=== PATIENT | female | born 1965 | race Caucasian/White ===

== ENCOUNTER 2020-06-11 17:52 | Inpatient (IN) ==
[2020-06-11] MEDS ORDERED: ONDANSETRON INJ 2 MG/ML 2 ML VIAL ONE (18:13)
[2020-06-11 18:23] LABS: Basophils # (auto) 0.08 K/uL (0-0.2); Basophils % (auto) 0.6 %; Eosinophils # (auto) 0.01 K/uL (0-0.5); Eosinophils % (auto) 0.1 %; Hematocrit (blood only) 51.6 % (37-47); Hemoglobin 17.2 g/dL (12.0-16.0); Immature Granulocytes # (auto) 0.13 K/uL (0.00-0.02); Lymphocytes # (auto) 3.01 K/uL (1.2-3.4); Lymphocytes % (auto) 23.3 %; Mean Corpuscular Hemoglobin 29.6 pg (25-34); Mean Corpuscular Hgb Conc 33.3 g/dL (32-36); Mean Corpuscular Volume 88.8 fL (80-100); Mean Platelet Volume 11.5 fL (7.4-10.4); Monocytes # (auto) 0.48 K/uL (0.11-0.59); Monocytes % (auto) 3.7 %; Neutrophils % (auto) 71.3 %; Platelet Count 400 K/uL (130-400); RDW Coefficient of Variation 13.3 % (11.5-14.5); RDW Standard Deviation 42.9 fL (36.4-46.3); Red Blood Count 5.81 M/uL (4.2-5.4); White Blood Count 12.91 K/uL (4.8-10.8)
[2020-06-11] MEDS ORDERED: NovoLIN-R INSULIN PER UNIT CHARGE IV STA (18:29)
[2020-06-11] MEDS ORDERED: SODIUM CHLORIDE 0.9% 1000ML 2,000 ML IV ONE (18:29)
--- NOTE | 2020-06-11 18:35 | Emergency Department Note ---
History of Present Illness General Chief complaint: Illness Stated complaint: ILLNESS Time Seen by Provider: 06/11/20 18:22 Source: patient Mode of arrival: EMS Limitations: no limitations History of Present Illness Provider complaint: Nausea/vomiting This is a 54-year-old female who presents to the ED with a chief complaint of nausea, vomiting and feeling thirsty. She states that she has had the symptoms for 2 or 3 days. The patient is an insulin requiring diabetic. She denies any pain. Denies diarrhea. She has an insulin pump. She states that she has been giving herself some insulin based on the pump but has not really checked her blood sugar at all recently in the past 2 days. She has no additional complaints at this time. Nothing makes her symptoms better. Home Medications Home Medications Medication Instructions Recorded Confirmed Type Lisinopril (Zestril) 5 mg PO QPM #0 10/01/08 History Sertraline (Zoloft) 200 mg PO QPM #0 10/01/08 History INSULIN ASPART (NOVOLOG) 0 SC ACHS #0 btl 11/16/15 History Insulin Glargine (Lantus) 30 unit SC HS #10 11/16/15 History Allergies Allergy/AdvReac Type Severity Reaction Status Date / Time erythromycin base AdvReac Unknown NAUSEA/VOMI Verified 09/11/09 02:26 TING Past Med/Surg History Social History Smoking Status: Current every day smoker Tobacco Type: Cigarettes Preferred Language: Maori Feels Safe at Home: Yes Review of Systems A total of 10 systems reviewed and were otherwise negative Physical Exam Vital Signs Vital Signs - 24 hr 06/11/20 17:55 06/11/20 18:10 06/11/20 18:15 Temperature 36.4 C L Temperature Source Oral Pulse Rate 102 H 127 H 120 H Pulse Rate from SpO2 Sensor 127 H 120 H Pulse Rhythm Regular Pulse Strength Normal Respiratory Rate 22 22 19 Respiratory Effort / Characteristics Non-Labored Spontaneous Respiratory Depth Normal Respiratory Pattern Regular Blood Pressure 147/90 H 171/97 H Blood Pressure Mean 109 117 Blood Pressure Position Sitting Pulse Oximetry 97 95 97 Oxygen Delivery Method Room Air Room Air Room Air Sepsis Recent Fever Within 48 Hours No Sepsis New/Unexplained Change in Mental Status No Sepsis Action Taken by Nursing No Action Required CONSTITUTIONAL/VITAL SIGNS: Reviewed / noted above. GENERAL: Non-toxic in appearance. Smell of ketones about the patient. INTEGUMENTARY: Warm, dry, and [place]. HEAD: Normocephalic. EYES: without scleral icterus or trauma. ENT/OROPHARYNX: clear and moist. LYMPHADENOPATHY/NECK: Is supple without lymphadenopathy or meningismus. RESPIRATORY: Lungs clear and equal. CARDIOVASCULAR: Tachycardic rate and regular rhythm. GI/ABDOMEN: Soft and nontender. No organomegaly or pulsatile mass. No rebound or guarding. Normal bowel sounds. EXTREMITIES: Warm and well perfused. BACK: No CVA tenderness. NEUROLOGICAL: Intact without focal deficits. PSYCHIATRIC: normal affect. MUSCULOSKELETAL: Normally developed with good muscle tone. TRIAGE NURSING DOCUMENTATION REVIEWED. Course Administered Medications Sodium Chloride (Nss 1000ml) 2,000 mls @ 999 mls/hr IV .Q2H1M ONE Stop: 06/11/20 20:29 Last Admin: 06/11/20 18:39 Dose: 999 mls/hr Documented by: [id number] Discontinued Medications Insulin Human Regular (Novolin-R Insulin Per Unit Charge) 5 units IV NOW STA Stop: 06/11/20 18:30 Last Admin: 06/11/20 18:39 Dose: 5 units Documented by: [id number] Cosigned by: [id number] Ondansetron HCl (Ondansetron Inj 2 Mg/Ml 2 Ml Vial) Confirm Administered Dose 4 mg .ROUTE .STK-MED ONE Stop: 06/11/20 18:14 Last Admin: 06/11/20 18:17 Dose: 4 mg Documented by: [id number] Critical Care Time Critical Care Time: Yes Total Critical Care Time: 35 I have personally spent 35 minutes of critical care time in the direct management of this patient. This includes bedside care, interpretation of diagnostic studies, and testing, discussion with consultants, patient, and family members, and other required patient management activities. This 35 minutes is in excess of all separately billable procedures. Medical Decision Making Differential Diagnosis Differential includes acute coronary syndrome, myocardial infarction, CVA, TIA, anemia, infection, pneumonia, UTI, pyelonephritis, poor nutrition, dehydration, electrolyte disturbance,hypoglycemia. Medical Records Attestation: I reviewed the patient's medical records. Home Medications Current Medication List: was personally reviewed by me Laboratory Data Attestation: I reviewed the patient's lab results. Result diagrams: 06/11/20 18:12 06/11/20 18:12 Lab Results 06/11/20 06/11/20 06/11/20 Range/Units 18:10 18:12 18:12 WBC 12.91 H (4.8-10.8) K/uL RBC 5.81 H (4.2-5.4) M/uL Hgb 17.2 H (12.0-16.0) g/dL Hct 51.6 H (37-47) % MCV 88.8 (80-100) fL MCH 29.6 (25-34) pg MCHC 33.3 (32-36) g/dL RDW Std Deviation 42.9 (36.4-46.3) fL RDW Coeff of Jade 13.3 (11.5-14.5) % Plt Count 400 (130-400) K/uL MPV 11.5 H (7.4-10.4) fL Immature Gran % (Auto) 1.0 % Neut % (Auto) 71.3 % Lymph % (Auto) 23.3 % Waller % (Auto) 3.7 % Eos % (Auto) 0.1 % Baso % (Auto) 0.6 % Neut # (Auto) 9.20 H (1.4-6.5) K/uL Lymph # (Auto) 3.01 (1.2-3.4) K/uL Waller # (Auto) 0.48 (0.11-0.59) K/uL Eos # (Auto) 0.01 (0-0.5) K/uL Baso # (Auto) 0.08 (0-0.2) K/uL Immature Gran # (Auto) 0.13 H (0.00-0.02) K/uL Sodium 127 L (136-145) mmol/L Potassium 4.9 (3.5-5.1) mmol/L Chloride 94 L (98-107) mmol/L Carbon Dioxide 10 L (21-32) mmol/L Anion Gap 23.0 H (3-11) BUN 24 H (7-18) mg/dl Creatinine 1.71 H (0.6-1.2) mg/dl Est Cr Clr Drug Dosing 31.8 ml/min Est GFR ( Amer) 39.2 Est GFR (Non-Af Amer) 33.8 BUN/Creatinine Ratio 13.8 (10-20) Glucose 497 H* (70-99) mg/dl POC Glucose 510 H* (70-99) mg/dl Calcium 9.9 (8.5-10.1) mg/dl Total Bilirubin 0.5 (0.2-1) mg/dl AST 36 (15-37) U/L ALT 38 (12-78) U/L Alkaline Phosphatase 162 H (45-117) U/L Total Protein 8.7 H (6.4-8.2) gm/dl Albumin 4.4 (3.4-5.0) gm/dl Globulin 4.3 H (2.5-4.0) gm/dl Albumin/Globulin Ratio 1.0 (0.9-2) Beta-Hydroxybutyric Acd 98.00 H (0.2-2.81) mg/dl 06/11/20 06/11/20 Range/Units 18:16 19:16 WBC (4.8-10.8) K/uL RBC (4.2-5.4) M/uL Hgb (12.0-16.0) g/dL Hct (37-47) % MCV (80-100) fL MCH (25-34) pg MCHC (32-36) g/dL RDW Std Deviation (36.4-46.3) fL RDW Coeff of Jade (11.5-14.5) % Plt Count (130-400) K/uL MPV (7.4-10.4) fL Immature Gran % (Auto) % Neut % (Auto) % Lymph % (Auto) % Waller % (Auto) % Eos % (Auto) % Baso % (Auto) % Neut # (Auto) (1.4-6.5) K/uL Lymph # (Auto) (1.2-3.4) K/uL Waller # (Auto) (0.11-0.59) K/uL Eos # (Auto) (0-0.5) K/uL Baso # (Auto) (0-0.2) K/uL Immature Gran # (Auto) (0.00-0.02) K/uL Sodium (136-145) mmol/L Potassium (3.5-5.1) mmol/L Chloride (98-107) mmol/L Carbon Dioxide (21-32) mmol/L Anion Gap (3-11) BUN (7-18) mg/dl Creatinine (0.6-1.2) mg/dl Est Cr Clr Drug Dosing ml/min Est GFR ( Amer) Est GFR (Non-Af Amer) BUN/Creatinine Ratio (10-20) Glucose (70-99) mg/dl POC Glucose 516 H* 365 H* (70-99) mg/dl Calcium (8.5-10.1) mg/dl Total Bilirubin (0.2-1) mg/dl AST (15-37) U/L ALT (12-78) U/L Alkaline Phosphatase (45-117) U/L Total Protein (6.4-8.2) gm/dl Albumin (3.4-5.0) gm/dl Globulin (2.5-4.0) gm/dl Albumin/Globulin Ratio (0.9-2) Beta-Hydroxybutyric Acd (0.2-2.81) mg/dl ECG Data Attestation: I personally reviewed and interpreted this ECG as follows: Indication: + tachycardia Rate (beats per minute): 109 Rhythm: + sinus tachycardia ECG ST segments: no ST elevation ECG Findings: no PVCs MDM Narrative Patient presents as above with nausea and vomiting for 2 or 3 days of not able to keep anything down. She feels thirsty. She is a diabetic. She has an insulin pump. Exam torre, she is has a smell of ketones about her. She is a little tachycardic. Abdominal tenderness. Denies any recent upper respiratory symptoms. The patient's EKG shows a sinus tach at a rate of 109. White blood cell count is 12.9. Hemoglobin is 17.2. Sodium is 127. This is likely pseudohyponatremia related to hyperglycemia. Glucose is around 500. Anion gap is 23. BUN is 24. Creatinine is 1.7. The patient was treated with IV Zofran, 2 L of normal saline IV, IV regular insulin 5 and an insulin drip at 5/h. The patient will be seen by the hospitalist for further evaluation and care. Impression & Plan DKA (diabetic ketoacidoses) Discharge Plan Visit Data Chief Complaint: Illness Stated Complaint: ILLNESS ED Provider: Javier Salazar Discharge Problem: DKA (diabetic ketoacidoses) Patient Disposition: Being Evaluated by Hospitalist Forms Stand Alone Forms: [facility] [place], Virtual Emergency Department, Important Visit Information Prescriptions Prescriptions: No Action Lisinopril (Zestril) 5 MG tablet 5 mg PO QPM Qty: 0 RF: 0 Sertraline (Zoloft) 100 MG tablet 200 mg PO QPM Qty: 0 RF: 0 INSULIN ASPART (NOVOLOG) 100 UNIT/ INJECTION 0 SC ACHS Qty: 0 RF: 0 Insulin Glargine (Lantus) VIAL 30 unit SC HS Qty: 10 RF: 0 Referrals Referrals: Zuleyma Jennings DO [Primary Care Provider] - Discharge Problem: DKA (diabetic ketoacidoses) Qualifiers: Diabetes mellitus type: type 2 Diabetes mellitus complication detail: without coma Qualified Code(s): E11.10 - Type 2 diabetes mellitus with ketoacidosis without coma
[2020-06-11 18:47] LABS: Albumin Level 4.4 gm/dl (3.4-5.0); BUN Creatinine Ratio 13.8 (10-20); Bilirubin,Total 0.5 mg/dl (0.2-1); Calcium 9.9 mg/dl (8.5-10.1); Creatinine Clr Calc Pharmacy 31.8 ml/min; Est GFR (African American) 39.2; Est GFR (Non-African American) 33.8; Globulin 4.3 gm/dl (2.5-4.0); Potassium 4.9 mmol/L (3.5-5.1); Total Protein 8.7 gm/dl (6.4-8.2)
[2020-06-11] MEDS ORDERED: CARBOHYDRATES FOR HYPOGLYCEMIA PO PRN ×2 (19:52→21:28)
[2020-06-11] MEDS ORDERED: ED DKA INSULIN DRIP ONE (19:52)
[2020-06-11] MEDS ORDERED: GLUCOSE 40% GEL 15 GM TUBE PO PRN ×2 (19:52→21:28)
[2020-06-11] MEDS ORDERED: DEXTROSE 50% 50 ML SYRINGE IV PRN ×2 (19:52→21:28)
[2020-06-11] MEDS ORDERED: GLUCOSE 10 TABS/TUBE PO PRN ×2 (19:52→21:28)
[2020-06-11] MEDS ORDERED: DKA GOAL RANGE 150-250 mg/dl ONE (19:52)
[2020-06-11] MEDS ORDERED: GLUCAGON FOR INJ 1 MG VIAL SQ PRN ×2 (19:52→21:28)
[2020-06-11] MEDS ORDERED: INSULIN REGULAR 250 UNITS in SODIUM CHLORIDE 0.9% 247.5 ML IV SCH (20:00)
[2020-06-11 20:09] LABS: Appearance Urine Clear (Clear); Bacteria Urine Automated Negative (Negative); Bilirubin Urine Negative (Negative); Blood Urine 1+ (Negative); Color Urine Yellow; Epithelial Cell Urine Auto 20-30 /lpf (0-5); Glucose Urine UA 3+ (Negative); Ketones Urine 4+ (Negative); Leukocyte Esterase Urine Negative (Negative); Nitrite Urine Negative (Negative); Protein Urine 1+ (Negative); RBC Urine Automated 0-4 /hpf (0-4); Specific Gravity Urine 1.024 (1.000-1.030); Urobilinogen Urine Negative (Negative)
[2020-06-11 20:14] LABS: Magnesium 1.8 mg/dl (1.8-2.4); Phosphorus 6.1 mg/dl (2.5-4.9)
[2020-06-11 20:42] LABS: Base Excess VBG -13.8 mEq/L; HCO3 VBG 14 mmol/L; Oxygen Saturation VBG < 60.0 %; PCO2 VBG 41 mmHg (38-50); PO2 VBG 19 mmHg; pH VBG 7.16 (7.36-7.41)
[2020-06-11] MEDS ORDERED: POTASSIUM CHLORIDE 10 MEQ in D5W AND 1/2NSS 1,000 ML IV SCH (20:45)
[2020-06-11] MEDS ORDERED: ALUMINUM/MAGNESIUM SUSP 30 ML UDC PO PRN (21:28)
[2020-06-11] MEDS ORDERED: POLYETHYLENE (MIRALAX) 17 GM PACK PO PRN (21:28)
[2020-06-11] MEDS ORDERED: SODIUM CHLORIDE 0.9% 1000ML 1,000 ML IV ONE (21:28)
[2020-06-11] MEDS ORDERED: ONDANSETRON INJ 2 MG/ML 2 ML VIAL IV PRN (21:28)
[2020-06-11] MEDS ORDERED: MAGNESIUM HYDROXIDE SUSP 30 ML UDC PO PRN (21:28)
[2020-06-11] MEDS ORDERED: ACETAMINOPHEN 325 MG TAB PO PRN (21:28)
--- NOTE | 2020-06-11 21:31 | History & Physical Report ---
Date of Service June 11, 2020 Assessment & Plan (1) DKA (diabetic ketoacidoses): (2) Metabolic acidosis due to diabetes mellitus: This is a 54-year-old female who has significant past medical history of type 1 diabetes mellitus, HTN, HLD, COPD, tobacco abuse, depression with anxiety who presents to ED secondary to nausea and vomiting x2 days. In ED she was found to be in DKA. She received 2 L IVF bolus, 5 units of IV regular insulin and 4 mg of IV Zofran. She already feels much improved. She denies any prior history of DKA. Her lab abnormalities include WBC 12.91, H&H 17.2 and 51.6, platelet 400, VBG pH 7.16, corrected sodium 137, K4.9, BUN 24, creatinine 1.71, anion gap 23, Phos 6.1, mag 1.8, beta hydroxybutyric acid 98. She was tachycardic but otherwise hemodynamically stable. Glucose on arrival was 497. No sign/sx of infection. Possible etiology uncontrolled T1DM, last a1c 8.9, 03/23/20. She also states her CGM read 150s but when EMS arrives BSG was in 400s. Possible equipment error. admit to PCU insulin gtt ordered - glycemic pharmacist consulted - appreciate their management pt is on insulin pump at baseline received 2L IVF bolus in ED, BSG now 317 Give additional 1L IVF Bolus of NSS, then switch to D5 1/2 NS + 20meq KCL at 150cc/hr q4h bmp, vbg ph, mag, phos NPO until gap closes (3) [place] (acute kidney injury): baseline cr 0.8 bun/cr 24 and 1.71 2/2 to dehydration and DKA bmp q4hr (4) HTN (hypertension): on lisinopril continue (5) HLD (hyperlipidemia): not on cholesterol lowering medication Last total chol 274, LDL 173, HDL 80 10/2017 obtain fasting lipid panel in a.m. (6) COPD (chronic obstructive pulmonary disease): no acute exacerbation continue breo, prn alb (7) Depression with anxiety: continue zoloft pt tearful, lost her youngest daughter 1 year ago and has been very hard on her (8) Tobacco use: encourage tobacco cessation declines patch at this time (9) DVT prophylaxis: SQ Heparin Disposition: admit to PCU Follow up: PCP Dr. Jennings upon discharge, along with setting up [facility] pharmacy for diabetes management Pt was seen and examined in collaboration with Dr. Aiken, please see addendum History of Present Illness Chief Complaint: Nausea and vomiting x2 days. Primary Care Provider: Zuleyma Jennings, DO This is a 54-year-old female who has significant past medical history of type 1 diabetes mellitus, HTN, HLD, COPD, tobacco abuse, depression with anxiety who presents to ED secondary to nausea and vomiting x2 days. She states on Monday she went to vote and shortly after she developed abrupt onset of nausea and vomiting. She tried to drink water to stay hydrated but would vomit it back up. She denied any abdominal pain, fever, chills, sweats or diarrhea. She states she has never felt like this in the past. She is a type 1 insulin-dependent diabetic and does have an insulin pump. She also has a CGM. She is wondering if her CGM is an accurate. Her BSG was 150, but when EMS arrived she was in the 400s. She states approximately a week ago she was having difficulty with hypoglycemia and her blood sugars in the 40s. She classifies her self is a brittle diabetic because, "I can be very high and go very low real quick." She denies any recent illness or sick contacts. Again denies fever, chills, sweats, lightheadedness, dizziness, syncope, chest pain, shortness of breath, hemoptysis, abdominal pain, dysuria, increased urgency or frequency with urination. She does have a cough but this is chronic for her and unchanged. She is a [id number] smoker. She states she has not touched a cigarette for 2 days. Appetite overall decreased and unable to tolerate PO 2/2 to N/V. Lives with father. Has a lot of stress in life after losing her youngest daughter 1 year ago. She has good days and bad days, but most recently has been having a lot of bad days and feels this is driving her sugar fluctuation. In ED she was found to be in DKA. She received 2 L IVF bolus, 5 units of IV regular insulin and 4 mg of IV Zofran. She already feels much improved. She denies any prior history of DKA. Her lab abnormalities include WBC 12.91, H&H 17.2 and 51.6, platelet 400, VBG pH 7.16, corrected sodium 137, K4.9, BUN 24, creatinine 1.71, anion gap 23, Phos 6.1, mag 1.8, beta hydroxybutyric acid 98. She was tachycardic but otherwise hemodynamically stable. Glucose on arrival was 497. Allergies Allergy/AdvReac Type Severity Reaction Status Date / Time erythromycin base AdvReac Unknown NAUSEA/VOMI Verified 06/11/20 20:18 TING Home Medications Home Medications Medication Instructions Recorded Confirmed Type albuterol sulfate [Ventolin HFA] 2 puff INHALATION Q4 PRN 06/11/20 06/11/20 History fluticasone furoate-vilanterol 1 inh INHALATION DAILY 06/11/20 06/11/20 History [Breo Ellipta] insulin lispro [Humalog U-100 0 unit SUBCUT UD 06/11/20 06/11/20 History Insulin] lisinopril 5 mg PO DAILY 06/11/20 06/11/20 History sertraline 200 mg PO DAILY 06/11/20 06/11/20 History Past Med/Surg History Medical History COPD (chronic obstructive pulmonary disease) Depression with anxiety HLD (hyperlipidemia) HTN (hypertension) Surgical History History of tonsillectomy and adenoidectomy History of trigger finger s/p release History of tubal ligation Family History (Updated 06/11/20 @ 21:26 by Vanessa Arambula PA-C) Father Hypertension Depression Grandfather Diabetes Social History Smoking Status: Current every day smoker Tobacco Type: Cigarettes packs per day: 1; Years Smoked: 40; Hx Alcohol Use: No Hx Substance Use: Yes Preferred Language: Irish Communication Ability: Effective Beliefs That Will Affect Care: None Current Living Situation: Family Current Living Situation Comment: Home with father Other Information That Helps Us Care for You: No Feels Safe at Home: Yes Safety Concerns: Feels Safe At This Time Review of Systems Review of Systems: All systems reviewed & are unremarkable except as noted in HPI & below Physical Exam Physical Exam: Constitutional: Thin, petite, female, vitals as above, NAD, sitting up in bed, pleasant, occasionally tearful, conversing easily Head: Normocephalic, Atraumatic Eyes: PERRL, conjunctivae normal, anicteric sclerae ENMT: external ear and nose normal, oropharynx normal, membranes dry Neck: trachea midline, no thyromegaly normal visual inspection Respiratory: normal respiratory effort, lungs clear to auscultation, no wheeze, rales, rhonchi. Normal insp/exp effort, no accessory muscle use Cardiovascular: Tachycardic rate, regular rhythm, no murmur, no edema Vessels: no JVD or carotid bruit Chest: normal inspection of chest Abdomen: normal bowel sounds, soft, nontender, no hepatosplenomegaly, insulin pump in place Musculoskeletal: no cyanosis or clubbing, extremities motor strength 5/5 Skin: no rashes, warm and dry normal turgor Neurologic: PERRL, EOMI, accommodation nl, no face palsy, no dysarthria CN's II-XI intact bilaterally and moves all extremities Psychiatric: A+Ox3, euthymic affect Lymphatic: no cervical or axillary lymphadenopathy : deferred Results & Data Results & Data ([facility]) Vital Signs (Past 12 Hours) Vital Signs Temp Pulse Resp BP Pulse Ox 06/11/20 21:05 93 H 16 114/75 98 06/11/20 19:30 89 20 119/49 L 99 06/11/20 19:00 96 H 17 146/85 H 99 06/11/20 18:15 120 H 19 97 06/11/20 18:10 127 H 22 171/97 H 95 06/11/20 17:55 36.4 C L 102 H 22 147/90 H 97 Laboratory Results Short CBC 06/11/20 06/11/20 Range/Units 18:12 18:12 WBC 12.91 H (4.8-10.8) K/uL Hgb 17.2 H (12.0-16.0) g/dL Hct 51.6 H (37-47) % Plt Count 400 (130-400) K/uL Glucose 497 H* (70-99) mg/dl BMP 06/11/20 18:12 Sodium 127 L Potassium 4.9 Chloride 94 L Carbon Dioxide 10 L BUN 24 H Creatinine 1.71 H Glucose 497 H* Calcium 9.9 Liver Function 06/11/20 Range/Units 18:12 Total Bilirubin 0.5 (0.2-1) mg/dl AST 36 (15-37) U/L ALT 38 (12-78) U/L Alkaline Phosphatase 162 H (45-117) U/L Albumin 4.4 (3.4-5.0) gm/dl Urine 06/11/20 Range/Units 19:54 Urine Color Yellow Urine Appearance Clear (Clear) Urine pH 5.0 (4.5-7.5) Ur Specific [place] 1.024 (1.000-1.030) Urine Protein 1+ H (Negative) Urine Glucose (UA) 3+ H (Negative) Medications Administered Discontinued Medications Sodium Chloride (Nss 1000ml) 2,000 mls @ 999 mls/hr IV .Q2H1M ONE Stop: 06/11/20 20:29 Last Infusion: 06/11/20 20:38 Dose: 0 mls/hr Documented by: [id number] Admin: 06/11/20 18:39 Dose: 999 mls/hr Documented by: [id number] Insulin Human Regular (Novolin-R Insulin Per Unit Charge) 5 units IV NOW STA Stop: 06/11/20 18:30 Last Admin: 06/11/20 18:39 Dose: 5 units Documented by: [id number] Cosigned by: [id number] Ondansetron HCl (Ondansetron Inj 2 Mg/Ml 2 Ml Vial) Confirm Administered Dose 4 mg .ROUTE .STK-MED ONE Stop: 06/11/20 18:14 Last Admin: 06/11/20 18:17 Dose: 4 mg Documented by: [id number] ECG Rate (beats per minute): 109 Rhythm: sinus tachycardia Code Status & VTE Plan Code Status Full Code VTE Prophylaxis Plan VTE Prophylaxis will be ordered: Yes Supervising Physician Co-Signing Physician Notes Pt was seen and examined. Agreed with Vanessa TRISTAN exam assessment and plan. 54-year-old female with past medical history of type 1 diabetes mellitus, HTN, HLD, COPD, tobacco abuse, depression with anxiety was brought to the ER with c/o of nausea and vomiting x2 days. Pt said that on Monday she went to vote, then later she started to have nausea/vomiting. Pt said that everything she puts in her mouth or even drank water that she vomited. She said that when she called EMS today when they came, EMS checked her BS and was in the 400's, but early when she checked it, her BS was in the 150's. She said that her BS has been fluctuated from low to high. Pt said that she never had any DM complication such as DKA in the past. She said that she feels a lot better now. She denied any abdominal pain, fever, chills, sweats or diarrhea. On admission BS was in the 500's with elevated anion gap in the 23, beta hydroxybutyric acid 98 and pH 7.1 on the VBG. Received 2L IV NSS on admission, will give another 1L IV NSS. Will start on DKA protocol with insulin drip. Continue IV fluid. Will consult pharmacy for glycemic management. Will monitor BMP and follow up electrolytes and anion gap. Continue monitor closely. MD Attila (1) DKA (diabetic ketoacidoses) Diabetes mellitus complication detail: without coma Diabetes mellitus type: type 2 Qualified Code(s): E11.10 - Type 2 diabetes mellitus with ketoacidosis without coma
[2020-06-11] MEDS ORDERED: PHARMACY GLYCEMIC MGMT CONSULT PRN (21:42)
[2020-06-11 21:57] LABS: BUN Creatinine Ratio 15.9 (10-20); Calcium 7.9 mg/dl (8.5-10.1); Creatinine Clr Calc Pharmacy 42.9 ml/min; Est GFR (African American) 56.2; Est GFR (Non-African American) 48.5; Magnesium 1.6 mg/dl (1.8-2.4); Potassium 4.9 mmol/L (3.5-5.1)
[2020-06-11] MEDS: INSULIN ASPART 100 UNITS/ML 3 ML PEN SC SCH (21:57)
[2020-06-11] MEDS ORDERED: MAGNESIUM SULFATE / D5W 1 GM/100 ML BAG IV ONE (22:04)
[2020-06-11 22:17] LABS: Beta-Hydroxybutyrate 75.65 mg/dl (0.2-2.81)
[2020-06-11] MEDS: HEPARIN SOD 5,000 UNIT/0.5 ML VIAL SQ SCH (22:43)
[2020-06-11] MEDS: D5W AND 1/4NSS + 20MEQ KCL 20 MEQ/1,000 ML BAG IV SCH (22:44)
[2020-06-12 01:12] LABS: BUN Creatinine Ratio 14.7 (10-20); Calcium 7.7 mg/dl (8.5-10.1); Creatinine Clr Calc Pharmacy 49.9 ml/min; Est GFR (African American) 67.6; Est GFR (Non-African American) 58.3; Magnesium 2.1 mg/dl (1.8-2.4); Potassium 4.5 mmol/L (3.5-5.1)
[2020-06-12 01:14] LABS: Phosphorus 1.6 mg/dl (2.5-4.9)
[2020-06-12] MEDS: D5W AND 1/4NSS + 20MEQ KCL 20 MEQ/1,000 ML BAG IV SCH (04:50)
[2020-06-12 05:59] LABS: Estimated Average Glucose 214 mg/dl; Hemoglobin A1C 9.1 % (4.5-5.6)
[2020-06-12 06:23] LABS: BUN Creatinine Ratio 13.4 (10-20); Calcium 8.1 mg/dl (8.5-10.1); Creatinine Clr Calc Pharmacy 58.5 ml/min; Est GFR (African American) 81.9; Est GFR (Non-African American) 70.7; Potassium 3.9 mmol/L (3.5-5.1)
[2020-06-12 06:26] LABS: Beta-Hydroxybutyrate 2.47 mg/dl (0.2-2.81); Phosphorus 1.9 mg/dl (2.5-4.9)
[2020-06-12] MEDS: HEPARIN SOD 5,000 UNIT/0.5 ML VIAL SQ SCH ×2 (06:55→14:11)
[2020-06-12] MEDS: INSULIN ASPART 100 UNITS/ML 3 ML PEN SC SCH (08:39)
[2020-06-12 09:03] LABS: BUN Creatinine Ratio 12.3 (10-20); Calcium 8.4 mg/dl (8.5-10.1); Creatinine Clr Calc Pharmacy 60.5 ml/min; Est GFR (African American) 85.2; Est GFR (Non-African American) 73.5; Magnesium 1.9 mg/dl (1.8-2.4)
[2020-06-12 09:04] LABS: Phosphorus 1.9 mg/dl (2.5-4.9)
[2020-06-12] MEDS ORDERED: INSULIN HUMAN LISPRO (humaLOG) 100 UNITS/ML VIAL SC PRN (09:30)
--- NOTE | 2020-06-12 11:09 | Pharmacy Report ---
Pharmacy Glycemic Short Note 2 - Date of Service June 12, 2020 - Glycemic Short BSG Results (Last 24 hours): 06/11/20 06/11/20 06/11/20 18:10 18:12 18:16 Glucose 497 H* POC Glucose 510 H* 516 H* 06/11/20 06/11/20 06/11/20 19:16 20:25 21:01 Glucose 317 H* POC Glucose 365 H* 279 H 06/11/20 06/11/20 06/11/20 21:05 21:46 22:52 Glucose POC Glucose 317 H* 367 H* 240 H 06/12/20 06/12/20 06/12/20 00:04 00:44 01:02 Glucose 222 H POC Glucose 233 H 230 H 06/12/20 06/12/20 06/12/20 02:29 03:36 04:39 Glucose POC Glucose 190 H 168 H 128 H 06/12/20 06/12/20 06/12/20 05:40 05:42 06:43 Glucose 110 H POC Glucose 112 H 161 H 06/12/20 06/12/20 06/12/20 07:16 07:50 08:34 Glucose 167 H POC Glucose 146 H 164 H 06/12/20 08:45 Glucose POC Glucose 176 H OUTPATIENT ANTIDIABETIC REGIMEN (confirmed at bedside with patient): * Humalog insulin pump ([employer]) * Basal settings: 1844-9302 0.75units/hr; 9363-3591 0.5units/hr; total daily basal = 17.25units * Sensitivity Factor: 50mg/dL * Carb Ratio: 1 unit per 15gm CHO's consumed * Maximum bolus: 10units * Goal Range: 90-150mg/dL * A1c = 9.1% 06/12/20 ASSESSMENT: * Type 1 diabetic admitted for DKA yesterday. She reported a 2 day history of NV. Patient had been using her insulin pump and CGM however she felt that the CGM may have been malfunctioning as her CGM reading did not match that obtained by the EMS on arrival. Zoo Director evaluated patient's pump and felt that the tubing may have been kinked as well. * Initial labs in ER showed AG 23, Bicar 10, BOHB 98, 4++ urine ketones, corrected Na ~135. Patient was started on IV insulin infusion per protocol and given IV fluid resuscitation. This AM ketoacidosis resolved on labs (AG 6, Bicarb 21 and BOHB normalized). * Patient does have her insulin supplies with her. Per discussion with provider, will resume her own insulin pump per home settings to confirm pump is working appropriately. Will also have her attach her CGM. Accucheks will also be performed and compared to each CGM reading. If readings differ more than 20% will need to disconnect CGM and use hospital Accuchek for all insulin pump dosing. PLAN FOR INPATIENT GLYCEMIC CONTROL: * Resume patient's home Humalog insulin pump per home settings. * May also attach CGM for use with pump however Accucheks will need to be performed ACHS and PRN per patient request. If patient's CGM result varies from Accuchek by > 20%, CGM should be removed and Accucheks performed for patient self-management via pump. * Continue IV insulin drip per protocol at this time, goal range 140-180. Discontinue insulin drip when BSG less than 200 PLAN FOR DISCHARGE: * to be determined.
[2020-06-12] MEDS: POT PHOSPHATE MONOBASIC W/ SOD TAB PO SCH ×4 (11:18→21:40)
[2020-06-12] MEDS ORDERED: INSULIN PROTOCOL GOAL RANGE ONE (12:56)
[2020-06-12 13:11] LABS: BUN Creatinine Ratio 10.1 (10-20); Calcium 8.4 mg/dl (8.5-10.1); Creatinine Clr Calc Pharmacy 50.4 ml/min; Est GFR (African American) 68.4; Magnesium 1.9 mg/dl (1.8-2.4); Potassium 3.9 mmol/L (3.5-5.1)
[2020-06-12 13:12] LABS: Phosphorus 2.7 mg/dl (2.5-4.9)
--- NOTE | 2020-06-12 15:56 | Hospitalist Progress Note ---
Date of Service June 12, 2020 Assessment & Plan (1) DKA (diabetic ketoacidoses): Gap closed, acidosis resolved at this point. She is feeling better with a resolution of her nausea and is now tolerating food. Cont to watch her insulin glucometer and compare this to our accuchecks to trouble shoot this. (2) COVID-19: Nasal swab positive. Pt is asymptomatic. She doesn't have a known sick contact. CXR was performed with no active infection seen in the chest. She is not requiring oxygen. No treatments needed at this time. Self-monitoring of symptoms and quarantine at home for 10 days. (3) Metabolic acidosis due to diabetes mellitus: resolved. (4) AZ (acute kidney injury): resolved with rehydration. She is requesting to have her lisinopril back on and this was restarted. (5) HTN (hypertension): at goal, restart lisinopril in am. (6) HLD (hyperlipidemia): ASCVD risk is 4.1%. Will defer statin initiation to her PCP as outpatient. (7) COPD (chronic obstructive pulmonary disease): stable, no evidence of exacerbation, cont home Breo. Albuterol PRN (8) Depression with anxiety: Zoloft held on admission for uncertain reason. This was restarted with first dose now. (9) Tobacco use: encourage tobacco cessation, declined nicotine patch on admission (10) DVT prophylaxis: Heparin switched to lovenox to decrease shot burden and to decrease amount of times staff goes into the room with covid diagnosis. Full Code Dispo-to home in next 1-2 days Christina Gabriel DO [facility] Hospitalist Admission and Anticipated Discharge Date Admission Date: June 11, 2020 Subjective the patient was tired and slightly irritable initially, but was overall feeling better she reported a sore throat likely from the vomiting and we discussed a throat spray she was starting to tolerate food and felt that she could eat dinner no infectious symptoms recently reported including no fevers, chills, cough, runny nose, GI symptoms, UTI symptoms she lives with her elderly father at home. She feels that somewhere over the last few days, her glucometer on her insulin pump has been reading her sugars falsely low, contributing to her DKA situation. She otherwise reports compliance althought A1C is >9. she became very upset and emotional when she received the news that she was covid+ even with reassurance that she wouldn't need to stay in the hospital for this, she was very upset and we couldn't communicate much after that time. Review of Systems Review of Systems: All systems reviewed & are unremarkable except as noted in Subjective Physical Exam Physical Exam: CONSTITUTIONAL: WNWD, vitals as above, generally well- appearing EYES: normal conjunctivae, no scleral icterus ENT: external ear and nose normal, oropharynx clear, MMM RESPIRATORY: clear to auscultation bilaterally, no crackles, rales or wheezes, normal respiratory effort CARDIOVASCULAR: regular rate and rhythm, S1 and 2 heard without murmurs, gallops or rubs, no JVD, no peripheral edema GASTROINTESTINAL: soft, nontender, nondistended, no guarding. MUSCULOSKELETAL: strength 5/5 throughout, head is normocephalic and atraumatic SKIN: warm and dry NEUROLOGIC: CN 2-12 grossly intact, no sensory deficit, normal cognition, norm al speech, no tremor. No gross focal deficits. PSYCHIATRIC: alert cooperative and oriented to person, place and time. Results & Data Results & Data ([facility]) Vital Signs (Past 12 Hours) Vital Signs Temp Pulse Resp BP Pulse Ox 06/12/20 11:15 36.6 C 70 19 119/65 95 06/12/20 07:25 37.0 C 72 16 105/62 92 Laboratory Results Short CBC 06/11/20 Range/Units 18:12 WBC 12.91 H (4.8-10.8) K/uL Hgb 17.2 H (12.0-16.0) g/dL Hct 51.6 H (37-47) % Plt Count 400 (130-400) K/uL BMP 06/11/20 06/11/20 06/12/20 18:12 21:01 00:44 Sodium 127 L 132 L 134 L Potassium 4.9 4.9 4.5 Chloride 94 L 101 109 H Carbon Dioxide 10 L 14 L 15 L BUN 24 H 20 H 16 Creatinine 1.71 H 1.27 H D 1.09 Glucose 497 H* 317 H* 222 H Calcium 9.9 7.9 L D 7.7 L 06/12/20 06/12/20 06/12/20 05:42 08:34 12:46 Sodium 139 137 137 Potassium 3.9 4.0 3.9 Chloride 112 H 108 H 106 Carbon Dioxide 21 22 24 BUN 12 11 11 Creatinine 0.93 0.90 1.08 Glucose 110 H 167 H 270 H Calcium 8.1 L 8.4 L 8.4 L Liver Function 06/11/20 Range/Units 18:12 Total Bilirubin 0.5 (0.2-1) mg/dl AST 36 (15-37) U/L ALT 38 (12-78) U/L Alkaline Phosphatase 162 H (45-117) U/L Albumin 4.4 (3.4-5.0) gm/dl Urine 06/11/20 Range/Units 19:54 Urine Color Yellow Urine Appearance Clear (Clear) Urine pH 5.0 (4.5-7.5) Ur Specific [place] 1.024 (1.000-1.030) Urine Protein 1+ H (Negative) Urine Glucose (UA) 3+ H (Negative) Medications Administered Current Inpatient Medications Acetaminophen (Acetaminophen 325 Mg Tab) 650 mg PO Q4H PRN PRN Reason: Pain or Fever Stop: 07/11/20 21:27 Al Hydrox/Mg Hydrox/Simethicone (Aluminum/Magnesium Susp 30 Ml Udc) 15 ml PO Q4H PRN PRN Reason: Dyspepsia Stop: 07/11/20 21:27 Dextrose (Dextrose 50% 50 Ml Syringe) 25 - 50 ml IV UD PRN; Protocol PRN Reason: Hypoglycemia Protocol Stop: 07/11/20 21:27 Glucagon (Glucagon For Inj 1 Mg Vial) 1 mg SQ UD PRN; Protocol PRN Reason: Hypoglycemia Protocol Stop: 07/11/20 21:27 Glucose (Glucose 10 Tabs/Tube) 4 - 8 tabs PO UD PRN; Protocol PRN Reason: Hypoglycemia Protocol Stop: 07/11/20 21:27 Glucose (Glucose 40% Gel 15 Gm Tube) 15 - 30 gm PO UD PRN; Protocol PRN Reason: Hypoglycemia Protocol Stop: 07/11/20 21:27 Heparin Sodium (Porcine) (Heparin Sod 5,000 Unit/0.5 Ml Vial) 5,000 units SQ Q8 SHADY Stop: 07/11/20 21:59 Last Admin: 06/12/20 14:11 Dose: 5,000 units Documented by: Insulin Human Lispro (Humalog Insulin Pump) 1 ea N/A [facility]; Protocol Stop: 07/12/20 11:29 Last Admin: 06/12/20 11:20 Dose: 1 ea Documented by: Insulin Human Lispro (Insulin Human Lispro (Humalog) 100 Units/Ml Vial) 0 units SC PRN PRN PRN Reason: for pump refill Stop: 07/12/20 09:29 Magnesium Hydroxide (Magnesium Hydroxide Susp 30 Ml Udc) 30 ml PO Q12H PRN PRN Reason: Constipation Stop: 07/11/20 21:27 Miscellaneous (Carbohydrates For Hypoglycemia ) 15 - 30 gm PO UD PRN PRN Reason: Hypoglycemia Protocol Stop: 07/11/20 21:27 Miscellaneous Information (Pharmacy Glycemic Mgmt Consult) 1 ea N/A UD PRN; Protocol PRN Reason: Consult Stop: 07/11/20 21:41 Ondansetron HCl (Ondansetron Inj 2 Mg/Ml 2 Ml Vial) 4 mg IV Q6H PRN PRN Reason: Nausea Stop: 07/11/20 21:27 Polyethylene Glycol (Polyethylene (Miralax) 17 Gm Pack) 17 gm PO DAILY PRN PRN Reason: Constipation Stop: 07/11/20 21:27 Potassium Phosphate (Pot Phosphate Monobasic W/ Sod Tab) 2 tab PO QID SHADY Stop: 07/12/20 09:59 Last Admin: 06/12/20 14:11 Dose: 2 tab Documented by: (1) DKA (diabetic ketoacidoses) Diabetes mellitus complication detail: without coma Diabetes mellitus type: type 2 Qualified Code(s): E11.10 - Type 2 diabetes mellitus with ketoacidosis without coma
[2020-06-12] MEDS ORDERED: ALBUTEROL HFA 8 GM INHALER INH PRN (16:29)
--- NOTE | 2020-06-12 16:35 | XRay Report ---
XR chest 1V portable CLINICAL HISTORY: DKA/COVID+ SHORTNESS OF BREATH COMPARISON STUDY: 11/03/2014 FINDINGS: The cardiac and mediastinal contours are normal. There is no evidence of focal pulmonary co nsolidation. There is no evidence of failure. No pleural effusions are visualized.[There is probable underlying pulmonary emphysema. IMPRESSION: No active disease in the chest. ACT 112: Negative or not required by law. Electronically signed by: Jason Castillo M.D. 06/12/2020 4:34 PM
[2020-06-12] MEDS ORDERED: CHLORASEPTIC 1.4% SOLN 180 ML BTL MT PRN (17:08)
--- NOTE | 2020-06-12 18:11 | Electrocardiogram Report ---
Test Reason : Blood Pressure : / mmHG Vent. Rate : 109 BPM Atrial Rate : 109 BPM P-R Int : 118 ms QRS Dur : 082 ms QT Int : 332 ms P-R-T Axes : 086 079 086 degrees QTc Int : 447 ms Sinus tachycardia Biatrial enlargement Abnormal ECG When compared with ECG of 03-NOV-2014 08:22, Anterior infarct is now Present Confirmed by Enzo Alexander ([id number]) on 06/12/2020 6:11:30 PM Referred By: REFERRED SELF Confirmed By:Johnson Alexander
[2020-06-12] MEDS: lisinopril 5 MG TAB PO SCH (18:21)
[2020-06-12] MEDS: FLUTICASONE/VILANTEROL 100/25MCG 14 PUFFS/INHALER INH SCH (18:22)
[2020-06-12] MEDS ORDERED: SERTRALINE HCL 100 MG TABLET PO SCH (21:00)
[2020-06-13 08:38] VITALS: BP 109/75; PULSE 73; TEMP 98.2; O2SAT 95
[2020-06-13] MEDS: lisinopril 5 MG TAB PO SCH (08:51)
[2020-06-13] MEDS: POT PHOSPHATE MONOBASIC W/ SOD TAB PO SCH ×2 (08:51→12:57)
[2020-06-13] MEDS: FLUTICASONE/VILANTEROL 100/25MCG 14 PUFFS/INHALER INH SCH (08:52)
[2020-06-13] MEDS ORDERED: ENOXAPARIN INJ 40 MG/0.4 ML SYR SQ SCH (09:00)
[2020-06-13 09:25] LABS: Hematocrit (blood only) 44.2 % (37-47); Hemoglobin 15.5 g/dL (12.0-16.0); Mean Corpuscular Hgb Conc 35.1 g/dL (32-36); Mean Corpuscular Volume 85.7 fL (80-100); Mean Platelet Volume 10.6 fL (7.4-10.4); Platelet Count 204 K/uL (130-400); RDW Coefficient of Variation 13.3 % (11.5-14.5); RDW Standard Deviation 41.3 fL (36.4-46.3); Red Blood Count 5.16 M/uL (4.2-5.4); White Blood Count 5.77 K/uL (4.8-10.8)
[2020-06-13 10:00] LABS: BUN Creatinine Ratio 12.7 (10-20); Calcium 8.9 mg/dl (8.5-10.1); Creatinine Clr Calc Pharmacy 70.7 ml/min; Est GFR (African American) 102.9; Est GFR (Non-African American) 88.8; Potassium 3.4 mmol/L (3.5-5.1)
--- NOTE | 2020-06-13 12:22 | Discharge Summary ---
Date of Service June 13, 2020 Admission HPI Per Admitting Provider This is a 54-year-old female who has significant past medical history of type 1 diabetes mellitus, HTN, HLD, COPD, tobacco abuse, depression with anxiety who presents to ED secondary to nausea and vomiting x2 days. She states on Monday she went to vote and shortly after she developed abrupt onset of nausea and vomiting. She tried to drink water to stay hydrated but would vomit it back up. She denied any abdominal pain, fever, chills, sweats or diarrhea. She states she has never felt like this in the past. She is a type 1 insulin-dependent diabetic and does have an insulin pump. She also has a CGM. She is wondering if her CGM is an accurate. Her BSG was 150, but when EMS arrived she was in the 400s. She states approximately a week ago she was having difficulty with hypoglycemia and her blood sugars in the 40s. She classifies her self is a brittle diabetic because, "I can be very high and go very low real quick." She denies any recent illness or sick contacts. Again denies fever, chills, sweats, lightheadedness, dizziness, syncope, chest pain, shortness of breath, hemoptysis, abdominal pain, dysuria, increased urgency or frequency with urination. She does have a cough but this is chronic for her and unchanged. She is a [id number] smoker. She states she has not touched a cigarette for 2 days. Appetite overall decreased and unable to tolerate PO 2/2 to N/V. Lives with father. Has a lot of stress in life after losing her youngest daughter 1 year ago. She has good days and bad days, but most recently has been having a lot of bad days and feels this is driving her sugar fluctuation. In ED she was found to be in DKA. She received 2 L IVF bolus, 5 units of IV regular insulin and 4 mg of IV Zofran. She already feels much improved. She denies any prior history of DKA. Her lab abnormalities include WBC 12.91, H&H 17.2 and 51.6, platelet 400, VBG pH 7.16, corrected sodium 137, K4.9, BUN 24, creatinine 1.71, anion gap 23, Phos 6.1, mag 1.8, beta hydroxybutyric acid 98. She was tachycardic but otherwise hemodynamically stable. Glucose on arrival was 497. Admission Exam Per Admitting Provider Constitutional: Thin, petite, female, vitals as above, NAD, sitting up in bed, pleasant, occasionally tearful, conversing easily Head: Normocephalic, Atraumatic Eyes: PERRL, conjunctivae normal, anicteric sclerae ENMT: external ear and nose normal, oropharynx normal, membranes dry Neck: trachea midline, no thyromegaly normal visual inspection Respiratory: normal respiratory effort, lungs clear to auscultation, no wheeze, rales, rhonchi. Normal insp/exp effort, no accessory muscle use Cardiovascular: Tachycardic rate, regular rhythm, no murmur, no edema Vessels: no JVD or carotid bruit Chest: normal inspection of chest Abdomen: normal bowel sounds, soft, nontender, no hepatosplenomegaly, insulin pump in place Musculoskeletal: no cyanosis or clubbing, extremities motor strength 5/5 Skin: no rashes, warm and dry normal turgor Neurologic: PERRL, EOMI, accommodation nl, no face palsy, no dysarthria CN's II-XI intact bilaterally and moves all extremities Psychiatric: A+Ox3, euthymic affect Lymphatic: no cervical or axillary lymphadenopathy : deferred Principal Diagnosis DKA COVID-19 Discharge Exam CONSTITUTIONAL: WNWD, vitals as above, generally well-appearing EYES: normal conjunctivae, no scleral icterus ENT: external ear and nose normal, oropharynx clear, MMM RESPIRATORY: clear to auscultation bilaterally, no crackles, rales or wheezes, normal respiratory effort CARDIOVASCULAR: regular rate and rhythm, S1 and 2 heard without murmurs, gallops or rubs, no JVD, no peripheral edema GASTROINTESTINAL: soft, nontender, nondistended, no guarding. MUSCULOSKELETAL: strength 5/5 throughout, head is normocephalic and atraumatic SKIN: warm and dry NEUROLOGIC: CN 2-12 grossly intact, no sensory deficit, normal cognition, normal speech, no tremor. No gross focal deficits. PSYCHIATRIC: alert cooperative and oriented to person, place and time. Discharge Data Allergies Allergy/AdvReac Type Severity Reaction Status Date / Time erythromycin base AdvReac Unknown NAUSEA/VOMI Verified 06/11/20 20:18 TING Ordered Studies [facility] [id number] XRay Report Patient: CORNELIO ANNE AAdmit Date: 06/11/20MR#: [id number]: [address] RDAcct ID:[id number]: [facility]: 1965[facility] Zip: [place] [id number]: 54Location: 2ESex: FRoom/Bed: [id number] Phy: Christina Gabriel, DODiagnosis: DKAPri Phy: Zuleyma Jennings, DOService Date: 06/12/20Fam Phy:Interpreting Phy: Jason Castillo MDAdmit Phy: Arturo Aiken M.D. Ordering Phy: Christina Gabriel, DO XR chest 1V portable CLINICAL HISTORY: DKA/COVID+ SHORTNESS OF BREATH COMPARISON STUDY: 11/03/2014 FINDINGS: The cardiac and mediastinal contours are normal. There is no evidence of focal pulmonary consolidation. There is no evidence of failure. No pleural effusions are visualized.[There is probable underlying pulmonary emphysema. IMPRESSION: No active disease in the chest. ACT 112: Negative or not required by law. Electronically signed by: Jason Castillo M.D. 06/12/2020 4:34 PM Dictated: 06/12/20 1633Transcribed: 06/12/20 1633 Diabetes Follow up Diabetes Follow-up Needed for HgbA1c >9% Hospital Course (1) DKA (diabetic ketoacidoses): (2) COVID-19: (3) Metabolic acidosis due to diabetes mellitus: (4) AZ (acute kidney injury): The patient is a 54-year-old type I diabetic female who uses an insulin pump at home who presented with diabetic ketoacidosis. She was found to have a malfunction with her port system connected to her pump in addition to a malfunctioning meter which read her glucose lower than it actually was. This resulted in the false assumption she was getting enough insulin when she was not in subsequent diabetic ketoacidosis. She was admitted to the hospitalist service and started on insulin drip. She was also found to be in acute renal failure secondary to dehydration and this resolved with rehydration efforts. Her lisinopril was held initially and restarted during hospitalization. Her blood pressure remained at goal. A fasting lipid panel was pulled and her ASCVD risk was 4.1%. Will defer statin initiation to her primary care doctor as outpatient. During the course of the hospitalization she was swabbed for novel coronavirus and tested positive on the PCR test. She is uncertain how she got this but is in the business of cleaning buses. She also recently voted this last week. In both instances she reports wearing PPE. She remained asymptomatic from a Covid standpoint and we had no evidence of pneumonia on chest x-ray. She was instructed to quarantine per CDC and public health guidelines. At time of discharge she was mentating and ambulating at baseline and tolerating p.o. Her nausea had resolved and her gap remained closed. Her meter appeared to be working well as her numbers were similar to the fingerstick glucose checks performed in the hospital she was sent home in stable condition with close primary care follow-up recommended. Notably her A1C was 9.1 indicating poor control of her diabetes overall, which should be addressed over time by her primary care provider. Total Time Total Time Spent Total Time Spent (In Minutes): 60 Total Time Includes: Examination of the Patient, Discharge Planning, Medication Reconciliation and Communication With Other Providers Discharge Plan Discharge Items Patient Disposition: Home - Self-Care Reason For Visit: DKA Discharge Diagnosis: DKA COVID-19 Condition on Discharge: Good Activity: Resume your previous activity Non-emergency contact: Primary Care Provider Call non-emergency contact if: you have any medication questions, your symptoms worsen, your pain is not controlled and you have a fever Follow-up/Referrals: Zuleyma Jennings, [Primary Care Provider] - Diet: Carb Count or DM1 Addtl Attending Provider Instructions: It is recommended that you follow-up with your primary care provider in 1-2 weeks via a telehealth visit to ensure you are still doing well after this hospitalization. Please note your hemoglobin A1C is >9 reflecting poor overall control of your diabetes. Please continue to work closely with your primary care provider to get this closer to goal 6.5. It is strongly recommended that you quit smoking. Please consider this and work with your primary care provider regarding available resources such as nicotine replacement. Per public health guidelines, please self-quarantine for 10 days after your diagnosis which was 06/12. You may come off quarantine after the ten days as long as you have been fever free and your symptoms are improved or you are not having symptoms for the last 3 days of quarantine. https://www.cdc.gov/coronavirus/2019-ncov/zr-tyq-rqq-sick/isolation.html https://www.health[place].gov/topics/Documents/[place]/COVID-19%20 Patient%20Instructions%20for%20Self%20Isolation.pdf It was a pleasure taking care of you! Please call if you have any questions or problems. You can reach a [facility] hospitalist on duty at [facility] 24 hours a day by calling [phone]. Take care of yourself. Christina Gabriel DO [facility] Hospitalist Pending Studies at Discharge: No Stand-Alone Forms: My [facility], Work/School Release (Inpt), Smoking Cessation Medications and DC Order Prescriptions: Continued insulin lispro [Humalog U-100 Insulin] 100 unit/mL solution 0 unit subcut UD RF: 0 albuterol sulfate [Ventolin HFA] 90 mcg/actuation HFA aerosol inhaler 2 puff INHALATION Q4 PRN (Reason: Shortness Of Breath Or Wheezing) RF: 0 sertraline 100 mg Tablet 200 mg PO HS RF: 0 lisinopril 5 mg tablet 5 mg PO DAILY RF: 0 Breo Ellipta 100-25 mcg/dose blister with device 1 inh INHALATION DAILY RF: 0 Discharge Orders: Discharge Order (Routine); Ordered 06/13/20 Ordered By: Christina Gabriel Admission Data Admit Date/Time: 06/11/20 20:31 Attending Provider: Christina Gabriel Admit Provider: Arturo Aiken Primary Care Provider: Zuleyma Jennings Other Providers: Arturo Aikne Other Interventions: Discharge Summary Assessment (RN) Last Done: 06/13/20 12:45
== END 2020-06-13 14:04 | disposition home or self-care (01) | DRG 637 ==
LOC: ED 17:52 → 2E 20:31 → SUATTDRO 20:31 → 2E 21:10 → 2N 06-12 17:07